=== PATIENT | male | born 1975 | race Two or more races ===

== ENCOUNTER → 2017-08-19 | Outpatient (CLI) | payer OTHER ==
[~2017-08-19] MED LIST: E-Z-GAS II EFFERVESCENT PACKET (SODIUM BICARB./CITRIC ACID/SIMETHICONE) As Ordered ONE; E-Z-HD 98% w/w 340GM SUSP BTL As Ordered ONE; E-Z-PAQUE 96% w/w SUSP 176GM BTL As Ordered ONE; LORA0.5T11 PO; MELA1TAB15 PO; OMEP40CA2 PO
--- NOTE | 2017-08-19 17:15 | REP ---
Esophagram The procedure was performed under the direct supervision of Dr. Devine. The images were reviewed with Dr. Devine. A single view PA chest x-ray is submitted as a certified orthotist practice manager film. The superior mediastinal structures are midline. The heart size is within normal limits. The lungs are clear. Liquid barium and gas producing granules were given in the erect position as well as liquid barium in the prone oblique positions in order to perform a double contrast esophagram examination. The oral and pharyngeal stages of deglutition are unremarkable. Esophageal transport is prompt and efficient. In the distal esophagus there is a 4 cm section of the irregular mucosa. There is no mass or stricture identified. This may represent esophagitis. There is no brandon ulcer identified. Impression: In the distal esophagus there is a 4 cm section of the irregular mucosa. There is no mass or stricture identified. This may represent esophagitis. There is no brandon ulcer identified. 52 seconds of fluoro time was utilized for this procedure. Reviewed by AVTAR Costa 08/19/2017 04:33 PSigned by Christophe Devine MD 08/19/2017 05:06 P
== END ==
LOC: M RAD 09:11
PROVIDERS: ATTEND Family Medicine
DX: R13.14 Dysphagia, pharyngoesophageal phase (principal)

== ENCOUNTER → 2017-09-01 | Outpatient (REF) | payer OTHER ==
[~2017-09-01] MED LIST changes: -E-Z-GAS II EFFERVESCENT PACKET (SODIUM BICARB./CITRIC ACID/SIMETHICONE) As Ordered ONE; -E-Z-HD 98% w/w 340GM SUSP BTL As Ordered ONE; -E-Z-PAQUE 96% w/w SUSP 176GM BTL As Ordered ONE
[2017-09-01 13:57] LABS: MYOGLOBIN 51 NG/ML (16-116)
== END ==
LOC: M SFHCPLAZ 13:26
PROVIDERS: ATTEND Nurse Practitioner Family
DX: R07.9 Chest pain, unspecified (principal)

== ENCOUNTER → 2017-09-03 | Outpatient (CLI) | payer OTHER ==
--- NOTE | 2017-09-04 10:28 | REP ---
MRI lumbar spine without contrast: History: Low back pain with right-sided sciatica. No available prior studies. Technique: Sagittal and axial T1 and T2-weighted scans are acquired in the usual fashion with and without fat saturation. Sequences include spin echo, turbo spin-echo, and STIR imaging sequences. MRI findings: Cortical and medullary bone signal intensity are normal. Vertebral body heights are preserved. There is anterior discogenic spurring along with disc space narrowing at each lumbar level. There is some spurring and narrowing at T12-L1 as well. There is a central bulge in the T12-L1 disc effacing the ventral subarachnoid space, but not compressing the cauda equina. The tip of the cauda equina is at the T12-L1 disc level. Normal caliber aorta is seen. No extraspinal abnormality. Axial and sagittal images obtained at the L1-2 disc level demonstrate a broad-based small disc protrusion along the left posterolateral disc margin indenting the left ventral margin of the thecal sac. Canal size is borderline. No neural foraminal encroachment. At L2-3, there is minimal diffuse disc bulging. No other finding. At L3-4, there is minimal disc bulging. No other abnormality. At L4-5, there is mild bilateral facet hypertrophy in addition to mild diffuse disc bulging. Neural foramina appear adequate. No central canal stenosis is seen. At L5-S1, there is mild bilateral facet hypertrophy. Minimal disc bulging is seen diffusely. No neural foraminal encroachment. Impression: Diffuse degenerative spondylosis. Multilevel minimal disc bulging. There is a small focal disc protrusion on the left at L1-L2 and canal size is borderline at L1-L2. There is also central disc bulging seen on sagittal images at T12-L1. Signed by Christophe Devine MD 09/04/2017 12:04 P
== END ==
LOC: M RAD 17:42
PROVIDERS: ATTEND Family Medicine
DX: M54.41 Lumbago with sciatica, right side (principal); M51.24 Other intervertebral disc displacement, thoracic region; M51.06 Intervertebral disc disorders with myelopathy, lumbar region
CPT/HCPCS: 36415; 72148; 82941; G0463

== ENCOUNTER → 2018-01-25 | Outpatient (REF) | payer OTHER ==
[2018-01-25 13:11] LABS: ESTIMATED AVERAGE GLUCOSE 105 MG/DL (60-110); HEMOGLOBIN A1c 5.3 %
== END ==
LOC: M SFHCPLAZ 09:36
DX: G62.9 Polyneuropathy, unspecified (principal); M54.42 Lumbago with sciatica, left side

== ENCOUNTER → 2018-08-18 | Outpatient (CLI) | payer OTHER | LOC: M OUTALCOH 13:53 | DX: Z13.89 Encounter for screening for other disorder (principal) ==

== ENCOUNTER 2018-08-24 13:44 | Outpatient (RCR) | payer OTHER | END 2018-09-07 | LOC: M OUTALCOH 13:44 | DX: Z03.89 Encounter for observation for other suspected diseases and conditions ruled out (principal) ==

== ENCOUNTER → 2018-09-12 | Outpatient (CLI) | payer OTHER | LOC: M WUC 09:37 | DX: M25.571 Pain in right ankle and joints of right foot (principal) | CPT/HCPCS: 73610 ==

== ENCOUNTER → 2019-04-26 | Outpatient (CLI) | payer OTHER ==
[2019-04-26 20:17] LABS: BASO % 0.5 % (0.0-1.0); EOS # 0.1 10^3/uL (0.0-0.50); EOS % 1.8 % (0.0-3.0); HEMATOCRIT 44.7 % (42.0-52.0); LYMPH # 2.5 10^3/uL (1.5-4.5); LYMPH % 38.3 % (24.0-44.0); MEAN CORPUSCULAR HEMOGLOBIN 31.4 pg (27.0-33.0); MEAN CORPUSCULAR HGB CONC 33.6 g/dl (32.0-36.5); MEAN CORPUSCULAR VOLUME 93.5 fl (80.0-96.0); MONO # 0.9 10^3/uL (0.0-0.8); MONO % 13.7 % (0.0-5.0); NEUTROPHILS % 45.4 % (36.0-66.0); PLATELET COUNT, AUTOMATED 270 10^3/uL (150-450); RED BLOOD COUNT 4.78 10^6/uL (4.30-6.10); WHITE BLOOD COUNT 6.6 10^3/uL (4.0-10.0)
[2019-04-26 20:31] LABS: ALBUMIN 4.2 GM/DL (3.2-5.2); ALT/SGPT 65 U/L (12-78); BILIRUBIN,TOTAL 0.7 MG/DL (0.2-1.0); BLOOD UREA NITROGEN 12 MG/DL (7-18); CALCIUM LEVEL 9.1 MG/DL (8.5-10.1); CARBON DIOXIDE LEVEL 29 MEQ/L (21-32); CHLORIDE LEVEL 101 MEQ/L (98-107); CREATININE FOR GFR 0.79 MG/DL (0.70-1.30); GLOMERULAR FILTRATION RATE > 60.0 (>60); GLUCOSE, FASTING 82 MG/DL (70-100); POTASSIUM SERUM 4.4 MEQ/L (3.5-5.1); SODIUM LEVEL 136 MEQ/L (136-145); TOTAL PROTEIN 7.9 GM/DL (6.4-8.2)
[2019-04-26 21:46] LABS: CHLAMYDIA DNA AMPLIFICATION NEGATIVE (NEGATIVE); GC DNA AMPLIFICATION NEGATIVE (NEGATIVE)
--- NOTE | 2019-04-27 07:20 | REP ---
KUB ABDOMEN AND PELVIS: KUB film of the abdomen and pelvis was performed. There is mild scattered air and fecal material is seen throughout the colon. There is no small bowel obstruction. No abnormal calcifications are seen. There are mild degenerative changes of the spine and hips. IMPRESSION: No evidence of obstruction. Electronically Signed by Chet Jules MD 04/27/2019 09:17 A
== END ==
LOC: M WUC 18:01
PROVIDERS: ATTEND Physician Assistant
DX: M54.5 Low back pain (principal); R30.0 Dysuria

== ENCOUNTER → 2019-05-16 | Outpatient (CLI) | payer OTHER ==
[2019-05-16 07:44] LABS: AMYLASE 62 U/L (25-115); LIPASE 118 U/L (73-393)
[2019-05-16 07:58] LABS: MALB URINE SIEMENS 11.2 MG/L; MAU/CREAT RATIO 5.6 MCG/MG (0.0-30.0)
[2019-05-16 08:36] LABS: VITAMIN B12 LEVEL 639 PG/ML (247-911)
--- NOTE | 2019-05-16 10:01 | REP ---
Clinical: Bilious stool. Technique: Real time khanna scale ultrasound examination using curved array transducer. Findings: Liver is hyperechoic without focal hepatic lesion identified. The pancreas is incompletely evaluated due to interposed bowel gas, but visualized portions appear normal. The gallbladder is unremarkable and without gallstones, wall thickening, or pericholecystic fluid. No biliary ductal dilatation is appreciated and the common bile duct measures 4.3 mm diameter. The right kidney is normal in reniform shape without hydronephrosis and measures 13.4 x 6.6 x 6.6 cm. Impression: Hepatic steatosis. Otherwise normal limited abdominal ultrasound. Electronically Signed by Jose Martínez MD 05/16/2019 09:52 A
== END ==
LOC: M RAD 06:12
PROVIDERS: ATTEND Family Medicine
DX: G62.9 Polyneuropathy, unspecified (principal); R19.5 Other fecal abnormalities; K76.0 Fatty (change of) liver, not elsewhere classified

== ENCOUNTER → 2019-07-24 | Outpatient (CLI) | payer OTHER ==
[~2019-07-24] MED LIST changes: +ISOVUE-370 76% 100ML VIAL (Q9967) As Ordered ONE
--- NOTE | 2019-07-24 13:00 | REP ---
CT of the chest with IV contrast, CT pulmonary artery angiography: There are no comparison studies. There are no emboli in the pulmonary trunk or central pulmonary arteries. There are no emboli in the pulmonary lobe or segment branches. There are no infiltrates. There are no pleural effusions. There are no lung masses or nodules. There is no mediastinal, hilar or axillary lymph node enlargement. The thoracic aorta is unremarkable. The visualized upper abdominal contents are unremarkable. Impression: There are no pulmonary emboli. Otherwise, negative CT study of the chest. Electronically Signed by Chet Finney MD 07/24/2019 12:50 P
== END ==
LOC: M RAD 11:38
PROVIDERS: ATTEND Family Medicine
DX: R07.9 Chest pain, unspecified (principal); R03.0 Elevated blood-pressure reading, without diagnosis of hypertension
CPT/HCPCS: 36415; 71275; 84484; G0463; Q9967

== ENCOUNTER → 2019-07-24 | Outpatient (REF) | payer OTHER ==
[~2019-07-24] MED LIST changes: -ISOVUE-370 76% 100ML VIAL (Q9967) As Ordered ONE
== END ==
LOC: M SFHCPLAZ 10:32
PROVIDERS: ATTEND Family Medicine
DX: R07.9 Chest pain, unspecified (principal); R03.0 Elevated blood-pressure reading, without diagnosis of hypertension

== ENCOUNTER → 2019-07-26 | Outpatient (REF) | payer OTHER ==
[2019-08-01 00:07] LABS: CREATININE,RANDOM URINE 98.7 mg/dL (Not Estab.); URINE METANEPHR/CREAT RATIO 0.3 (0.0-1.0)
== END ==
LOC: M SFHCPLAZ 13:42
PROVIDERS: ATTEND Family Medicine
DX: R03.0 Elevated blood-pressure reading, without diagnosis of hypertension (principal)